=== PATIENT | female | born 1970 | race Caucasian/White ===

== ENCOUNTER 2018-01-01 23:14 | Emergency (ER) | payer OTHER ==
[~2018-01-01] VITALS: Ht 170.2 cm; Wt 65.9 kg
[2018-01-01 23:17] VITALS: TEMP 98
[2018-01-01] MEDS ORDERED: INDERAL 20MG20 MG PO (23:28)
[2018-01-02 00:03] LABS: BASO # 0.1 (0.0-0.2); BASO % 0.5 % (0.0-2.0); EOS # 0.1 (0.0-0.7); GRAN # 6.4 (1.4-6.5); GRAN % 63.7 % (42.2-75.2); HEMOGLOBIN 12.1 g/dl (12.5-16.0); LYMPH # 2.5 (1.2-3.4); LYMPH % 24.8 % (20.0-51.0); MEAN CELL VOLUME 91 fl (80.0-100.0); MEAN CORPUSCULAR HEMOGLOBIN 31 pg (27.0-31.0); MEAN CORPUSCULAR HGB CONC 34 g/dl (33.0-37.0); MEAN PLATELET VOLUME 9.1 fl (7.4-10.4); MONO % 9.7 % (1.7-9.3); PLATELET COUNT 326 K/mm3 (130-400); RED BLOOD COUNT 3.86 M/mm3 (4.10-5.30); REDCELL DISTRIBUTION WIDTH-CV 14.1 % (11.5-14.5)
[2018-01-02 00:14] LABS: HEMATOCRIT 35.2 % (37.0-47.0)
[2018-01-02 00:17] LABS: INR 0.9 (0.8-3.0); PROTHROMBIN TIME 10.7 SECONDS (9.7-12.8)
[2018-01-02 00:20] LABS: PARTIAL THROMBOPLASTIN TIME 34.6 SECONDS (26.0-37.0)
[2018-01-02] MEDS ORDERED: ZOFRAN 4MG T4 MG/TAB PO (00:47)
[2018-01-02] MEDS ORDERED: PAMELOR 25MG25 MG PO (00:47)
[2018-01-02] MEDS ORDERED: MAGNESIUM OXID500 MG PO (00:49)
[2018-01-02] MEDS ORDERED: APRESOLINE 25MG25 MG PO (00:49)
[2018-01-02] MEDS ORDERED: HUMIRA40 MG/0.1 SQ (00:49)
[2018-01-02] MEDS ORDERED: NUCYNTA ER50 MG PO (00:50)
[2018-01-02] MEDS ORDERED: EFFEXOR XR75 MG/CAP PO (00:51)
[2018-01-02] MEDS ORDERED: COMPAZINE 110 MG/TAB PO (00:52)
[2018-01-02 01:45] VITALS: BP 142/91; PULSE 95
== END 2018-01-02 02:12 | disposition home or self-care (01) ==
LOC: COL.ER 23:14
PROVIDERS: Emergency Medicine
DX: R04.0 Epistaxis (principal); I10 Essential (primary) hypertension; F17.210 Nicotine dependence, cigarettes, uncomplicated